=== PATIENT | female | born 1945 | race Caucasian/White ===

== ENCOUNTER → 2017-04-30 | Day surgery (SDC) | payer MEDICARE, OTHER ==
[2017-04-28 10:47] LABS: BASOPHILS % 0.6 % (0.0-1.0); EOSINOPHILS # (AUTO) 0.1 (0.0-0.4); EOSINOPHILS % 1.5 % (0.0-6.0); HEMATOCRIT 33.3 % (34.2-44.1); HEMOGLOBIN 10.6 g/dL (12.0-16.0); LYMPHOCYTES % 19.5 % (18.0-39.1); MEAN CORPUSCULAR HEMOGLOBIN 30.6 pg (28-32); MEAN CORPUSCULAR HGB CONC 31.8 g/dL (31-35); MEAN CORPUSCULAR VOLUME 96.2 fL (81-99); MONOCYTES # (AUTO) 0.5 (0.2-0.8); NEUTROPHILS # (AUTO) 3.6 (2.1-6.9); PLATELET COUNT 268 x10e3/uL (140-360); RED BLOOD COUNT 3.46 x10e6/uL (3.6-5.1); RED CELL DISTRIBUTION WIDTH 13.6 % (11.7-14.4)
[~2017-04-30] MED LIST: ATORVASTATIN CA10 MG PO; ATORVASTATIN CA20 MG PO; CRAMP TABLET1 EACH PO; DIOVAN HCT 1601 EACH; DIOVAN HCT 3201 EACH; DIOVAN160 MG PO; DIOVAN320 MG PO; EPHEDRINE SULFATE INJ 50 MG/10 ML SYR ONE; EPINEPHRINE HCL INJ 1 MG/ML AMP ONE; FENTANYL CITRATE/PF 100MCG/2 ML INJ ONE; GLYCOPYRROLATE INJ 1MG/ 5 ML SYR ONE; HYDRALAZINE HCL25 MG PO; IRON PO; LIDOCAINE HCL 2% LOCAL INJ 5 ML SDV VIAL INJ ONE; MAXZIDE 37.5 M1 EACH PO; MIDAZOLAM HCL 2 MG/2 ML VIAL ONE; NORVASC5 MG; PROPOFOL IV EMULSION 10 MG/ML 20 ML VIAL ONE; SIMETHICONE 40 MG/0.6 ML BTL ONE; TRIAMTERENE-HCTZ1 EA PO; Z.0.CRESTOR5 MG PO; Z.0.DIOVAN320 MG PO; Z.0.EVISTA60 MG PO; Z.0.KLOR-CON 1010 ME PO; Z.0.LASIX20 MG PO; Z.0.NORVASC10 MG PO; Z.0.PAXIL20 MG PO; [UNRECOGNIZED DRUG - OTHER] PO
== END | disposition home or self-care (01) ==
LOC: OR 07:23
PROVIDERS: ATTEND Internal Medicine Gastroenterology
DX: D50.0 Iron deficiency anemia secondary to blood loss (chronic) (principal); K63.5 Polyp of colon; K31.7 Polyp of stomach and duodenum; K29.50 Unspecified chronic gastritis without bleeding; Q27.33 Arteriovenous malformation of digestive system vessel; K59.00 Constipation, unspecified; B96.81 Helicobacter pylori [H. pylori] as the cause of diseases classified elsewhere; K57.30 Diverticulosis of large intestine without perforation or abscess without bleeding; K63.89 Other specified diseases of intestine; K44.9 Diaphragmatic hernia without obstruction or gangrene; K64.8 Other hemorrhoids; K64.4 Residual hemorrhoidal skin tags; I10 Essential (primary) hypertension; E78.5 Hyperlipidemia, unspecified; F32.9 Major depressive disorder, single episode, unspecified; Z01.810 Encounter for preprocedural cardiovascular examination; Z01.812 Encounter for preprocedural laboratory examination; Z87.891 Personal history of nicotine dependence
CPT/HCPCS: 36415; 43251; 43270; 45380; 85025; 88305; 88312; 93005; J0171; J2001; J2250; 43239; 45384; 45385

== ENCOUNTER 2020-02-25 09:44 | Emergency (ER) | payer MEDICARE, OTHER ==
[~2020-02-25] VITALS: Ht 165.1 cm; Wt 70.3 kg
[~2020-02-25 09:44] MED LIST changes: -EPHEDRINE SULFATE INJ 50 MG/10 ML SYR ONE; -EPINEPHRINE HCL INJ 1 MG/ML AMP ONE; -FENTANYL CITRATE/PF 100MCG/2 ML INJ ONE; -GLYCOPYRROLATE INJ 1MG/ 5 ML SYR ONE; -LIDOCAINE HCL 2% LOCAL INJ 5 ML SDV VIAL INJ ONE; -MIDAZOLAM HCL 2 MG/2 ML VIAL ONE; -PROPOFOL IV EMULSION 10 MG/ML 20 ML VIAL ONE; -SIMETHICONE 40 MG/0.6 ML BTL ONE
--- NOTE | 2020-02-25 10:57 | Diagnostic Imaging Report ---
CT BRAIN WO-HOPD, CT C-SPINE W/O - HOPD HISTORY: Trauma COMPARISON: None. TECHNIQUE: Axial noncontrast CT images were obtained through the head and cervical spine. Coronal and sagittal reconstructions obtained from the axial data. One or more of the following dose reduction techniques were used: Automated exposure control, adjustment of the mA and/or kV according to patient size, and/or utilization of iterative reconstruction technique. DISCUSSION: HEAD CT: Scalp/Skull: Unremarkable. Brain sulci: Mildly prominent. Ventricles: Mild compensatory dilatation. Extra-axial spaces: No masses or fluid collections. Carotid siphon calcifications are present. Parenchyma: Mild periventricular white matter hypodensities are likely chronic microvascular ischemic changes. Old focal cortical infarct is seen in the left superior parietal lobule. Otherwise, no masses, hemorrhage, or large vascular territory acute infarct. Dural sinuses: No abnormal densities. Sellar/Suprasellar region: Intact. Skull base: Intact. Incidental findings: None. CERVICAL SPINE CT: Cervical lordosis is preserved. There is no scoliosis or subluxation. No fractures, compression deformity, or destructive osseous lesions are seen. The craniocervical junction is intact. No gross spinal canal masses are seen. The paravertebral and paraspinal soft tissues are unremarkable. Degenerative changes: Multilevel spondylosis is advanced at C5-C6. Associated multilevel facet arthrosis is present, left greater than right. There is at least moderate canal stenosis at C5-C6 due to posterior disc osteophyte complex. Multilevel bilateral foraminal stenoses due to uncovertebral and facet arthrosis are present - moderate to severe on the right at C5-C6 and C6-C7. Incidental findings: There is mild scarring in the lung apices. The thyroid gland is mildly heterogeneous. Moderate right carotid bulb calcified plaque is present. Surgical clips are seen adjacent to the mid left carotid space. IMPRESSION: Head CT: 1. No acute intracranial abnormalities. 2. Mild supratentorial chronic microvascular ischemic change. Mild generalized cerebral volume loss. 3. 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 Cervical Spine CT: 1. No acute osseous abnormalities in the cervical spine. 2. Degenerative changes as described above. Signed by: Dr. Lm Breaux M.D. on 02/25/2020 10:54 AM
--- NOTE | 2020-02-25 11:31 | Emergency Department Note ---
History of Present Illnes History of Present Illness Chief Complaint: General Medicine Complaints History of Present Illness This is a 74 year old female presents with laceration to right forehead s/p fall. Tripped on puppy outside, landing on wood deck. No LOC. No N/V/D. No numbness, tingling, weakness, speech/vision problems. No neck pain. No loss of bowel or bladder function. Teeth fell like they fit together normally. 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: No Onset (how long ago): minute(s) (40) Location: right forehead Quality: sharp Radiation: Reports non-radiation Severity: moderate Onset quality: sudden Timing of current episode: unable to specify Progression: unchanged Chronicity: new Context: Reports trauma/injury; Denies recent illness Relieving factors: none Exacerbating factors: none Associated symptoms: Reports headaches; Denies chest pain, Denies cough, Denies diaphoresis, Denies fever/chills, Denies loss of appetite, Denies nausea/vomiting, Denies rash, Denies syncope Past Medical/Family History Physician Review I have reviewed the patient's past medical and family history. Any updates have been documented here. Past Medical History Recent Fever: No Clinical Suspicion of Infectio: No New/Unexplained Change in Ment: No Past Medical History: Hyperlipedemia Other Medical History: HYPERCHOLESTEROLEMIA Other Surgery: BLADDER SUSPENSION Social History Smoking Cessation: Never Smoker Counseling Performed: No Alcohol Use: None Any Illegal Drug Use: No Other Last Tetanus: 2015 Any Pre-Existing Lines (PICC,: No Review of Systems Review of Systems Constitutional: Denies chills, Denies fever EENTM: Denies nose congestion, Denies throat pain, Denies throat swelling Cardiovascular: Denies palpitations, Denies syncope Respiratory: Denies pain with cough, Denies dyspnea Gastrointestinal: Denies diarrhea Genitourinary: Denies dysuria Musculoskeletal: Denies neck pain Integumentary: Denies rash Neurological: Reports headache Endocrine: Denies increased urination Hematological/Lymphatic: Denies easy bruising Physical Exam Related Data Allergies: Coded Allergies: Pentazocine Lactate (Verified Allergy, Mild, "MAKES ME CRAZY", 04/30/17) Triage Vital Signs Vital Signs Date Time Temp Pulse Resp B/P (MAP) Pulse Ox O2 Delivery O2 Flow Rate FiO2 02/25/20 09:50 97.2 66 16 124/79 99 Room Air Physical Exam CONSTITUTIONAL Constitutional: Present well-developed, Present well-nourished HENT HENT: Present normocephalic, Present oropharynx clear/moist, Present nose normal, Present other (2.5 cm laceration to left forehead just above right lateral eyelid, No racoon eyes, no kyle sign. No dental tenderness. Facial tenderness over laceration only.); Absent atraumatic, Absent nasal congestion, Absent rhinorrhea HENT L/R: Present left TM normal, Present right TM normal, Present left canal normal, Present right canal normal, Present left ext ear normal, Present right ext ear normal EYES Eyes: Reports PERRL, Reports conjunctivae normal, Reports EOM normal, Reports lids normal NECK Neck: Present ROM normal; Absent cervical adenopathy PULMONARY Pulmonary: Present effort normal, Present breath sounds normal CARDIOVASCULAR Cardiovascular: Present regular rhythm, Present heart sounds normal, Present capillary refill normal, Present normal rate GASTROINTESTINAL Abdominal: Present soft, Present nontender, Present bowel sounds normal GENITOURINARY SKIN Skin: Present warm, Present dry, Present other (2.5 cm laceration to left forehead just above right lateral eyelid) MUSCULOSKELETAL Musculoskeletal: Present ROM normal NEUROLOGICAL Neurological: Present alert, Present oriented x 3, Present DTRs normal, Present no gross motor or sensory deficits, Present other (negative [place]); Absent cranial nerve deficit, Absent sensory deficit, Absent abnormal DTRs, Absent abnormal coordination, Absent abnormal gait, Absent weakness PSYCHOLOGICAL Psychological: Present mood/affect normal, Present judgement normal Results Imaging Imaging Comments CT BRAIN WO-HOPD, CT C-SPINE W/O - HOPD HISTORY: Trauma COMPARISON: None. TECHNIQUE: Axial noncontrast CT images were obtained through the head and cervical spine. Coronal and sagittal reconstructions obtained from the axial data. One or more of the following dose reduction techniques were used: Automated exposure control, adjustment of the mA and/or kV according to patient size, and/or utilization of iterative reconstruction technique. DISCUSSION: HEAD CT: Scalp/Skull: Unremarkable. Brain sulci: Mildly prominent. Ventricles: Mild compensatory dilatation. Extra-axial spaces: No masses or fluid collections. Carotid siphon calcifications are present. Parenchyma: Mild periventricular white matter hypodensities are likely chronic microvascular ischemic changes. Old focal cortical infarct is seen in the left superior parietal lobule. Otherwise, no masses, hemorrhage, or large vascular territory acute infarct. Dural sinuses: No abnormal densities. Sellar/Suprasellar region: Intact. Skull base: Intact. Incidental findings: None. CERVICAL SPINE CT: Cervical lordosis is preserved. There is no scoliosis or subluxation. No fractures, compression deformity, or destructive osseous lesions are seen. The craniocervical junction is intact. No gross spinal canal masses are seen. The paravertebral and paraspinal soft tissues are unremarkable. Degenerative changes: Multilevel spondylosis is advanced at C5-C6. Associated multilevel facet arthrosis is present, left greater than right. There is at least moderate canal stenosis at C5-C6 due to posterior disc osteophyte complex. Multilevel bilateral foraminal stenoses due to uncovertebral and facet arthrosis are present - moderate to severe on the right at C5-C6 and C6-C7. Incidental findings: There is mild scarring in the lung apices. The thyroid gland is mildly heterogeneous. Moderate right carotid bulb calcified plaque is present. Surgical clips are seen adjacent to the mid left carotid space. IMPRESSION: Head CT: 1. No acute intracranial abnormalities. 2. Mild supratentorial chronic microvascular ischemic change. Mild generalized cerebral volume loss. 3. 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 Cervical Spine CT: 1. No acute osseous abnormalities in the cervical spine. 2. Degenerative changes as described above. Signed by: Dr. Lm Breaux M.D. on 02/25/2020 10:54 AM Procedures Laceration Laceration: Laceration 1 Site: face Side: right (forehead just above eyebrow) Size (cm): 2.5 Description: linear Depth: simple, single layer Amount of anesthesia (mL): 0 Pre-repair: wound exposed, irrigated extensively, deep structures intact Skin layer closed with: other (dermabond) Additional comments tolerated well, no complications Assessment & Plan Medical Decision Making MDM Patient s/p fall after tripping on dog. Mechanical fall - no syncope or pre-fall symptoms requiring workup. Differential dx includes, but not limited to: SDH, SAH, Cerebral contusion, skull fracture, laceration, contusion. CT head and C- spine shows nothing acute. Laceration closed with dermabond. Assessment & Plan Final Impression: (1) Laceration of skin of face (2) Closed head injury Depart Disposition: HOME, SELF-CARE Last Vital Signs Date Time Temp Pulse Resp B/P (MAP) Pulse Ox O2 Delivery O2 Flow Rate FiO2 02/25/20 09:50 97.2 66 16 124/79 99 Room Air Home Meds Reported Medications Triamterene/Hydrochlorothiazid (MAXZIDE 37.5 MG-25 MG TABLET) 1 Each Tablet, PO DAILY 10/29/16 Hydralazine Hcl (HYDRALAZINE HCL) 25 Mg Tab, 50 MG PO BID, TAB 10/04/16 Atorvastatin Calcium (ATORVASTATIN CALCIUM) 20 Mg Tablet, 20 MG PO HS, #30 TAB 10/04/16 Valsartan (DIOVAN) 160 Mg Tab, 160 MG PO BID, #60 TAB 10/04/16 Amlodipine Besylate (Norvasc) 10 Mg Tablet, 10 MG PO DAILY 07/12/11 Raloxifene Hcl (Evista) 60 Mg Tablet, 60 MG PO DAILY 07/12/11 JORDY LUCIO MD Feb 25, 2020 11:14
--- OUTSIDE RECORDS SUMMARY | 2020-02-26 10:04 | XMS REPORT | Continuity of Care Document ---
Author Author [facility] t Organization [facility] Address [address] [place] [address] Phone Unavailable Care Team Providers Care Recruiting Assistant Name Role Phone MD SCOTT SHIVANI PCP Vic LUCIO Attphys Unavailable CULLEN MENDOZA Attphys Unavailable FISH, MALENA SPENCE Attphys Unavailable FISH, MALENA SPENCE Admphys Unavailable Payers Payer Name Policy Type Policy Number Effective Date Expiration Date [facility] [id number] 2019 00:00:00 2019 00:00:00 [facility] Medicare A & B [id number] 2009 00:00:00 [facility] Problems Condition Name Condition Details Condition Category Status Onset Date Resolution Date Last Treatment Date Treating Clinician Comments Source Chest pain Chest pain Disease Active 2017-03-07 00:00:00 [facility] Food poisoning Problem Active [facility] Vomiting Problem Active [facility] Syncope and collapse Problem Active [facility] Urinary tract infection Problem Active [facility] Fracture of nasal bone Problem Active [facility] Abrasion of scalp Problem Active [facility] Allergies, Adverse Reactions, Alerts Allergy Name Allergy Type Status Severity Reaction(s) Onset Date Inacti ve Date Treating Clinician Comments Source Pentazocine Lactate Allergy to substance Active Mild "MAKES ME CRAZY" 2017-04-30 00:00:00 [facility] Pentazocine Lactate Propensity to adverse reactions Active 2017-03-06 00:00:00 [facility] Pentazocine Lactate Propensity to adverse reactions to drug Active Anxiety 2017-02-06 00:00:00 José Miguel flanagan Family History Family Member Diagnosis Comments Start Date Stop Date Source Natural mother Breast cancer José Miguel Ryan Social History Social Habit Start Date Stop Date Quantity Comments Source Sex Assigned At [facility] Alcohol intake 2017-03-10 00:00:00 2017-03-10 00:00:00 Current drinker of alcohol (finding) [facility] Alcohol Comment 2017-03-07 00:00:00 2017-03-07 00:00:00 very seldom [facility] Tobacco Comment 2017-02-06 00:00:00 2017-02-06 00:00:00 Quit smoking in 1969 José Miguel Ryan Smoking Status Start Date Stop Date Source Former smoker 2017-03-10 00:00:00 2017-03-10 00:00:00 [facility] Medications Ordered Medication Name Filled Medication Name Start Date Stop Da te Current Medication? Ordering Clinician Indication Dosage Frequency Signature (SIG) Comments Components Source amLODIPine (NORVASC) 10 MG tablet 2017-03-07 17:12:56 Yes 10mg QD Take 10 mg by mouth daily. [facility] atorvastatin (LIPITOR) 20 MG tablet 2017-03-07 17:12:56 Yes 20mg QD Take 20 mg by mouth daily. [facility] hydrALAZINE (APRESOLINE) 10 MG tablet 2017-03-07 17:12:56 Y es 10mg QD Take 10 mg by mouth daily. [facility] PARoxetine (PAXIL) 40 MG tablet 2017-03-07 17:12:56 Yes 40mg Take 40 mg by mouth as needed. [facility] raloxifene (EVISTA) 60 mg tablet 2017-03-07 17:12:56 Yes 60mg QD Take 60 mg by mouth daily. [facility] valsartan (DIOVAN) 160 MG tablet 2017-03-07 17:12:56 Yes 160mg QD Take 160 mg by mouth daily. [facility] Amlodipine Besylate (Norvasc) 10 Mg TABLET Amlodipine Besylate (Norvasc) 10 Mg TABLET Yes 10 Daily [facility] Atorvastatin Calcium Atorvastatin Calcium Yes 20 Bedtime [facility] Hydralazine Hcl Hydralazine Hcl Yes 50 Twice A Day [facility] Raloxifene Hcl (Evista) 60 Mg TABLET Raloxifene Hcl (Evista) 60 Mg TABLET Yes 60 Daily [facility] Triamterene/Hydrochlorothiazid (Maxzide 37.5 Mg-25 Mg Tablet) 1 Each TABLET Triamterene/Hydrochlorothiazid (Maxzide 37.5 Mg-25 Mg Tablet) 1 Each TABLET Yes Daily [facility] Valsartan (Diovan) 160 Mg TAB Valsartan (Diovan) 160 Mg TAB Yes [address] [facility] Acetaminophen/Pamabrom (Cramp Tablet) 1 Each TABLET Ac etaminophen/Pamabrom (Cramp Tablet) 1 Each TABLET 2017-04-30 00:00:00 No As Needed [facility] Citracal Vitamin Citracal Vitamin 2017-04-30 00:00:00 No Daily [facility] Iron Iron 2017-04-30 00:00:00 No Daily [facility] Triamterene/Hctz (Triamterene-Hctz 37.5-25 Mg Tb) 1 Ea TAB Triamterene/Hctz (Triamterene-Hctz 37.5-25 Mg Tb) 1 Ea TAB 2016-10-11 00:00:[address] [facility] Atorvastatin Calcium Atorvastatin Calcium 2016-10-04 00:00:[address] [facility] Paroxetine Hcl (Paxil) 20 Mg TABLET Paroxetine Hcl (Paxil) 20 Mg TABLET 2016-10-04 00:00:00 No 40 1-4 A Day As Needs [facility] Valsartan (Diovan) 320 Mg TABLET Valsartan (Diovan) 320 Mg TABLE T 2016-10-04 00:00:00 No 320 Bedtime [facility] Furosemide (Lasix) 20 Mg TABLET Furosemide (Lasix) 20 Mg TABLET 2015-06-13 00:00:00 No 20 Daily [facility] Potassium Chloride (Klor-Con 10) 10 Meq TABLET. Pota ssium Chloride (Klor-Con 10) 10 Meq TABLET.SA 2015-06-13 00:00:00 No 10 [place] [address] [facility] Valsartan (Diovan) 160 Mg TAB Valsartan (Diovan) 160 Mg TAB 2015-06-13 00:00:00 No 160 Bedtime [facility] Valsartan (Diovan) 320 Mg TABLET Valsartan (Diovan) 320 Mg TABLE T 2013-10-25 00:00:00 No 320 Daily [facility] Amlodipine Besylate (Norvasc) 5 Mg TAB Amlodipine Besylate (Norv asc) 5 Mg TAB 2013-10-21 00:00:00 No [facility] Rosuvastatin Calcium (Crestor) 5 Mg TABLET Rosuvastati n Calcium (Crestor) 5 Mg TABLET 2013-10-21 00:00:00 No 5 Daily [facility] Valsartan/Hydrochlorothiazide (Diovan Hct 320-25 Mg Ta blet) 1 Each TABLET Valsartan/Hydrochlorothiazide (Diovan Hct 320-25 Mg Tablet) 1 Each TABLET 2013-10-21 00:00:00 [facility] Valsartan/Hydrochlorothiazide (Diovan Hct 160-12.5 Mg Tab) 1 Each TABLET Valsartan/Hydrochlorothiazide (Diovan Hct 160-12.5 Mg Tab) 1 Each TABLET 2013-10-21 00:00:00 [facility] Vital Signs Vital Name Observation Time Observation Value Comments Source Oxygen saturation by Pulse oximetry 2020-02-25 09:50:00 99 /min [facility] Weight 2020-02-25 09:50:00 155 [lb_av] [facility] BMI (Body Mass Index) 2020-02-25 09:50:00 25.8 kg/m2 [facility] Procedures This patient has no known procedures. Plan of Care Planned Activity Planned Date Details Comments Source Future Scheduled Test 2019-12-07 00:00:00 INFLUENZA VACCINE (#1) [code = INFLUENZA VACCINE (#1)] [facility] r Future Scheduled Test 2019-11-06 00:00:00 INFLUENZA VACCINE [code = INFLUENZA VACCINE] [facility] Scheduled Test 2010-09-06 00:00:00 MEDICARE ANNUAL WE LLNESS (YEAR 2 or FIRST YEAR if no IPPE) [code = MEDICARE ANNUAL WELLNESS (YEAR 2 or FIRST YEAR if no IPPE)] [facility] Future Scheduled Test 2009 00:00:00 65+ PNEUMOCOCCAL V ACCINE (1 of 1 - PPSV23) [code = 65+ PNEUMOCOCCAL VACCINE (1 of 1 - PPSV23)] [facility] Scheduled Test 2009 00:00:00 PNEUMOCOCCAL 65+ Y RS (1 of 1 - [id number]) [code = PNEUMOCOCCAL 65+ YRS (1 of 1 - [id number] PCV13)] [facility] Future Scheduled Test 1994 00:00:00 BREAST CANCER SCRE ENING [code = BREAST CANCER SCREENING] [facility] Scheduled Test 1994 00:00:00 COLONOSCOPY SCREEN ING [code = COLONOSCOPY SCREENING] [facility] Scheduled Test 1994 00:00:00 SHINGLES VACCINES (#1) [code = SHINGLES VACCINES (#1)] [facility] Scheduled Test 1944 00:00:00 Screening for edinson gnant neoplasm of colon (procedure) [code = 126088296] [facility] Instructions Concussion/Head Injury - Adult [facility] Instructions Laceration [facility] Encounters Start Date/Time End Date/Time Encounter Type Admission Type Attendi [facility] Care Department Encounter ID Source 2020-02-25 10:00:00 2020-02-25 11:14:00 Departed Emergency Room JORDY LUCIO [facility] [id number] [facility] Results Test Description Test Time Test Comments Results Result Comments Source CT C-SPINE W/O - HOPD 2020-02-25 10:45:00 [facility] 1945 Sex: F [place] [address] Patient Name: CHULA OLIVA MR #: [id number] : 1945 Age/Sex: 74/F Req #: [id number] [facility] Physician: Ordered by: JORDY LUCIO MD Report #: [id number] Location: [facility] Room/Bed: Procedure: [id number] HOPD/CT C-SPINE W/O - HOPD Exam Date: 02/25/20 Exam Time: 1032 REPORT STATUS: Signed CT BRAIN WO-HOPD, CT C-SPINE W/O - HOPD HISTORY: Trauma COMPARISON: None. TECHNIQUE: Axial noncontrast CT images were obtained through the head and cervical spine. Coronal and sagittal reconstructions obtained from the axial data. One or more of the following dose reduction techniques were used: Automated exposure control, adjustment of the mA and/or kV according to patient size, and/or utilization of iterative reconstruction technique. DISCUSSION: HEAD CT: Scalp/Skull: Unremarkable. Brain sulci: Mildly prominent. Ventricles: Mild compensatory dilatation. Extra-axial spaces: No masses or fluid collections. Carotid siphon calcifications are present. Parenchyma: Mild periventricular white matter hypodensities are likely chronic microvascular ischemic changes. Old focal cortical infarct is seen in the left superior parietal lobule. Otherwise, no masses, hemorrhage, or large vascular territory acute infarct. Dural sinuses: No abnormal densities. Sellar/Suprasellar region: Intact. Skull base: Intact. Incidental findings: None. CERVICAL SPINE CT: Cervical lordosis is preserved. There is no scoliosis or subluxation. No fractures, compression deformity, or destructive osseous lesions are seen. The craniocervical junction is intact. No gross spinal canal masses are seen. The paravertebral and paraspinal soft tissues are unremarkable. Degenerative changes: Multilevel spondylosis is advanced at C5-C6. Associated multilevel facet arthrosis is present, left greater than right. There is at least moderate canal stenosis at C5-C6 due to posterior disc osteophyte complex. Multilevel bilateral foraminal stenoses due to uncovertebral and facet arthrosis are present - moderate to severe on the right at C5-C6 and C6-C7. Incidental findings: There is mild scarring in the lung apices. The thyroid gland is mildly heterogeneous. Moderate right carotid bulb calcified plaque is present. Surgical clips are seen adjacent to the mid left carotid space. IMPRESSION: Head CT: 1. No acute intracranial abnormalities. 2. Mild supratentorial chronic microvascular ischemic change. Mild generalized cerebral volume loss. 3. 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 Cervical Spine CT: 1. No acute osseous abnormalities in the cervical spine. 2. Degenerative changes as described above. Signed by: Dr. Lm Breaux M.D. on 02/25/2020 10:54 AM Dictated By: LM BREAUX MD 105 Transcribed By: HEATH on 02/25/20 1053 COPY TO: JORDY LUCIO MD CT BRAIN [facility] 2020-02-25 10:45:00 [facility] : 1945 Sex: F [facility] [address] [address] Patient Name: CHULA OLIVA MR #: [id number] : 1945 Age/Sex: 74/F Req #: [id number] Adm Physician: Ordered by: JORDY LUCIO MD Report #: [id number] Location: [facility] Room/Bed: Procedure: [id number] HOPD/CT BRAIN WO-HOPD Exam Date: 02/25/20 Exam Time: 1020 REPORT STATUS: Signed CT BRAIN WO-HOPD, CT C-SPINE W/O - HOPD HISTORY: Trauma COMPARISON: None. TECHNIQUE: Axial noncontrast CT images were obtained through the head and cervical spine. Coronal and sagittal reconstructions obtained from the axial data. One or more of the following dose reduction techniques were used: Automated exposure control, adjustment of the mA and/or kV according to patient size, and/or utilization of iterative reconstruction technique. DISCUSSION: HEAD CT: Scalp/Skull: Unremarkable. Brain sulci: Mildly prominent. Ventricles: Mild compensatory dilatation. Extra-axial spaces: No masses or fluid co llections. Carotid siphon calcifications are present. Parenchyma: Mild periventricular white matter hypodensities are likely chronic microvascular ischemic changes. Old focal cortical infarct is seen in the left superior parietal lobule. Otherwise, no masses, hemorrhage, or large vascular territory acute infarct. Dural sinuses: No abnormal densities. Sellar/Suprasellar region: Intact. Skull base: Intact. Incidental findings: None. CERVICAL SPINE CT: Cervical lordosis is preserved. There is no scoliosis or subluxation. No fractures, compression deformity, or destructive osseous lesions are seen. The craniocervical junction is intact. No gross spinal canal masses are seen. The paravertebral and paraspinal soft tissues are unremarkable. Degenerative changes: Multilevel spondylosis is advanced at C5-C6. Associated multilevel facet arthrosis is present, left greater than right. There is at least moderate canal stenosis at C5-C6 due to posterior disc osteophyte complex. Multilevel bilateral foraminal stenoses due to uncovertebral and facet arthrosis are present - moderate to severe on the right at C5-C6 and C6-C7. Incidental findings: There is mild scarring in the lung apices. The thyroid gland is mildly heterogeneous. Moderate right carotid bulb calcified plaque is present. Surgical clips are seen adjacent to the mid left carotid space. IMPRESSION: Head CT: 1. No acute intracranial abnormalities. 2. Mild supratentorial chronic microvascular ischemic change. Mild generalized cerebral volume loss. 3. 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 Cervical Spine CT: 1. No acute osseous abnormalities in the cervical spine. 2. Degenerative changes as described above. Signed by: Dr. Lm Breaux M.D. on 02/25/2020 10:54 AM Dictated By: LM BREAUX MD 1054 Transcribed By: HEATH on 02/25/20 1054 COPY TO: JORDY LUCIO MD RAD, CHEST, 2 VIEWS 2018-07-15 11:02:00 Reason for Exam:->I1 0, E78.5, N18.3, I67.89, Z79.899 FINAL REPORT Ches t, 2 views. Clinical History: I10, E78.5, N18.3, I67.89, Z79.899 Comparison Study: January 14, 2017 Findings: The heart and lungs are within normal limits. The pleural spaces are clear. Degenerative changes are seen. Impression: No active cardiopulmonary disease. Signed: Ramy Bartholomew MDReport Verified Date/Time: 07/15/2018 11:02:35 Reading Location: [facility] B1 [id number] Ortho Consult Reading Room C METABOLIC PANEL 2017-03-26 13:58:00 Test Item SODIUM (BEAKER) (test code = 381) 139 meq/L 136-145 POTASSIUM (BEAKER) (test code = 379) 4.7 meq/L 3.5-5.1 CHLORIDE (BEAKER) (test code = 382) 107 meq/L 98-107 CO2 (BEAKER) (test code = 355) 25 meq/L 22-29 BLOOD UREA NITROGEN (BEAKER) (test code = 354) 24 mg/dL 7-21 H CREATININE (BEAKER) (test code = 358) 1.23 mg/dL 0.57-1.25 GLUCOSE RANDOM (BEAKER) (test code = 652) 92 mg/dL 70-105 CALCIUM (BEAKER) (test code = 697) 9.2 mg/dL 8.4-10.2 EGFR (BEAKER) (test code = 1092) 43 mL/min/1.73 sq m ESTIMATED GFR IS NOT ACCURATE CREATININE CLEARANCE IN PREDICTING GLOMERULAR FILTRATION RATE. ESTIMATED GFR IS NOT APPLICABLE FOR DIALYSIS PATIENTS. CBC W/PLT COUNT & AUTO [id number] 13:49:00* Test Item Value Reference Range Interpretation Comments WHITE BLOOD CELL COUNT (BEAKER) (test code = 775) 5.9 K/ L 3.5- 10.5 RED BLOOD CELL COUNT (BEAKER) (test code = 761) 3.53 M/ L 3.93-5 .22 L HEMOGLOBIN (BEAKER) (test code = 410) 10.4 GM/DL 11.2-15.7 L HEMATOCRIT (BEAKER) (test code = 411) 32.6 % 34.1-44.9 L MEAN CORPUSCULAR VOLUME (BEAKER) (test code = 753) 92.4 fL 79. 4-94.8 MEAN CORPUSCULAR HEMOGLOBIN (BEAKER) (test code = 751) 29.5 pg 25.6-32.2 MEAN CORPUSCULAR HEMOGLOBIN CONC (BEAKER) (test code = 752) 31.9 GM/DL 32.2-35.5 L RED CELL DISTRIBUTION WIDTH (BEAKER) (test code = 412) 14.2 % 11.7-14.4 PLATELET COUNT (BEAKER) (test code = 756) 271 K/CU MM 150-450 MEAN PLATELET VOLUME (BEAKER) (test code = 754) 10.3 fL 9.4-12 .3 NUCLEATED RED BLOOD CELLS (BEAKER) (test code = 413) 0 /100 WBC 0 -0 NEUTROPHILS RELATIVE PERCENT (BEAKER) (test code = 429) 62 % LYMPHOCYTES RELATIVE PERCENT (BEAKER) (test code = 430) 25 % MONOCYTES RELATIVE PERCENT (BEAKER) (test code = 431) 9 % EOSINOPHILS RELATIVE PERCENT (BEAKER) (test code = 432) 3 % BASOPHILS RELATIVE PERCENT (BEAKER) (test code = 437) 1 % NEUTROPHILS ABSOLUTE COUNT (BEAKER) (test code = 670) 3.63 K/ L 1.56-6.13 LYMPHOCYTES ABSOLUTE COUNT (BEAKER) (test code = 414) 1.46 K/ L 1.18-3.74 MONOCYTES ABSOLUTE COUNT (BEAKER) (test code = 415) 0.53 K/ L 0. 24-0.36 H EOSINOPHILS ABSOLUTE COUNT (BEAKER) (test code = 416) 0.16 K/ L 0.04-0.36 BASOPHILS ABSOLUTE COUNT (BEAKER) (test code = 417) 0.05 K/ L 0. 01-0.08 IMMATURE GRANULOCYTES-RELATIVE PERCENT (BEAKER) (test code = 2801) 0 % 0-1 CBC W/PLT COUNT & AUTO [id number] 09:42:00* Test Item Value Reference Range Interpretation Comments WHITE BLOOD CELL COUNT (BEAKER) (test code = 775) 5.3 K/ L 3.5- 10.5 RED BLOOD CELL COUNT (BEAKER) (test code = 761) 3.33 M/ L 3.93-5 .22 L HEMOGLOBIN (BEAKER) (test code = 410) 9.7 GM/DL 11.2-15.7 L HEMATOCRIT (BEAKER) (test code = 411) 30.5 % 34.1-44.9 L MEAN CORPUSCULAR VOLUME (BEAKER) (test code = 753) 91.6 fL 79. 4-94.8 MEAN CORPUSCULAR HEMOGLOBIN (BEAKER) (test code = 751) 29.1 pg 25.6-32.2 MEAN CORPUSCULAR HEMOGLOBIN CONC (BEAKER) (test code = 752) 31.8 GM/DL 32.2-35.5 L RED CELL DISTRIBUTION WIDTH (BEAKER) (test code = 412) 13.6 % 11.7-14.4 PLATELET COUNT (BEAKER) (test code = 756) 264 K/CU MM 150-450 MEAN PLATELET VOLUME (BEAKER) (test code = 754) 10.4 fL 9.4-12 .3 NUCLEATED RED BLOOD CELLS (BEAKER) (test code = 413) 0 /100 WBC 0 -0 NEUTROPHILS RELATIVE PERCENT (BEAKER) (test code = 429) 61 % LYMPHOCYTES RELATIVE PERCENT (BEAKER) (test code = 430) 24 % MONOCYTES RELATIVE PERCENT (BEAKER) (test code = 431) 11 % EOSINOPHILS RELATIVE PERCENT (BEAKER) (test code = 432) 3 % BASOPHILS RELATIVE PERCENT (BEAKER) (test code = 437) 1 % NEUTROPHILS ABSOLUTE COUNT (BEAKER) (test code = 670) 3.22 K/ L 1.56-6.13 LYMPHOCYTES ABSOLUTE COUNT (BEAKER) (test code = 414) 1.26 K/ L 1.18-3.74 MONOCYTES ABSOLUTE COUNT (BEAKER) (test code = 415) 0.59 K/ L 0. 24-0.36 H EOSINOPHILS ABSOLUTE COUNT (BEAKER) (test code = 416) 0.16 K/ L 0.04-0.36 BASOPHILS ABSOLUTE COUNT (BEAKER) (test code = 417) 0.03 K/ L 0. 01-0.08 IMMATURE GRANULOCYTES-RELATIVE PERCENT (BEAKER) (test code = 2801) 0 % 0-1 BASIC METABOLIC [id number] 09:36:00* Test Item Value Reference Range Interpretation Comments SODIUM (BEAKER) (test code = 381) 142 meq/L 136-145 POTASSIUM (BEAKER) (test code = 379) 4.4 meq/L 3.5-5.1 CHLORIDE (BEAKER) (test code = 382) 110 meq/L 98-107 H CO2 (BEAKER) (test code = 355) 25 meq/L 22-29 BLOOD UREA NITROGEN (BEAKER) (test code = 354) 34 mg/dL 7-21 H CREATININE (BEAKER) (test code = 358) 1.34 mg/dL 0.57-1.25 H GLUCOSE RANDOM (KING) (test code = 652) 91 mg/dL 70-105 CALCIUM (KING) (test code = 697) 8.8 mg/dL 8.4-10.2 EGFR (KING) (test code = 1092) 39 mL/min/1.73 sq m ESTIMATED GFR IS NOT ACCURATE CREATININE CLEARANCE IN PREDICTING GLOMERULAR FILTRATION RATE. ESTIMATED GFR IS NOT APPLICABLE FOR DIALYSIS PATIENTS. RAD, CHEST, 2 [id number] 10:56:00Reason for Exam:->I10, E78.4, N18.3, I67.89, I70.1, R94.31FINAL REPORT Chest, two views HISTORY: Hypertension COMPARISON: 12/27/2015 DISCUSSION: Lungs are clear without focal consolidation. Cardiomediastinal silhouette is unremarkable. No acute osseous abnormality. No pleural effusion or pneumothorax. Visualized portions of the upper abdomen are unremarkable. IMPRESSION: No acute cardiopulmonary abnormality. Signed: Bryant Richardseport Verified Date/Time: 01/14/2017 10:56:37 Reading Location: [address] Radiology Reading Room
--- OUTSIDE RECORDS SUMMARY | 2020-02-26 10:04 | XMS REPORT | Clinical Summary ---
Author Author KRISTINA [employer] [facility] [employer] [facility] Address Unknown Phone Unavailable Care Team Providers Care Physical Chemistry Professor Name Role Phone Zana Yang PCP Zana Yagn Unavailable Allergies Comments Active Allergy Reactions Severity Noted Date Pentazocine Lactate 03/06/2017 Medications End Date Status Medication Sig Dispensed Refills Start Date Active amLODIPine (NORVASC) 10 Take 10 mg by 0 MG tablet mouth daily. Active atorvastatin (LIPITOR) 20 Take 20 mg by 0 MG tablet mouth daily. Active hydrALAZINE (APRESOLINE) Take 10 mg by 0 10 MG tablet mouth daily. Active PARoxetine (PAXIL) 40 MG Take 40 mg by 0 tablet mouth as needed. Active raloxifene (EVISTA) 60 mg Take 60 mg by 0 tablet mouth daily. Active valsartan (DIOVAN) 160 MG Take 160 mg 0 tablet by mouth daily. Active Problems Problem Noted Date Chest pain 03/07/2017 Social History Date Tobacco Use Types Packs/Day Years Used Former Smoker Drinks/Week oz/Week Comments Alcohol Use very seldom Yes Sex Assigned at Date Recorded Not on file Last Filed Vital Signs Not on file Plan of Treatment Health Maintenance Due Date Last Done Comments COLON CANCER SCREENING 1945 COLONOSCOPY PNEUMOCOCCAL 65+ YRS (1 2009 of 1 - [id number] PCV13) MEDICARE ANNUAL WELLNESS 09/06/2010 (YEAR 2 or FIRST YEAR if no IPPE) INFLUENZA VACCINE (#1) 2019 Results Not on fileafter 02/24/2019 Insurance Type Payer Benefit Subscriber ID Effective Phone Address Plan / Dates Group Medicare MEDICARE MEDICARE A [id number] [id number] B resent [facility] [id number] CARE [employer] resent INDEMNITY -[id number] Advance Directives For more information, please contact: [phone] Date Inactivated Comments Code Status Date Activated 03/07/2017 7:12 PM Full Code 03/07/2017 4:45 PM This code status was determined by: Patient 03/07/2017 4:45 PM Full Code 03/07/2017 8:35 AM This code status was determined by: Patient
--- OUTSIDE RECORDS SUMMARY | 2020-02-26 10:04 | XMS REPORT | Clinical Summary ---
Author Author [facility] Address Unknown Phone Unavailable Care Team Providers Care Environmental Specialist Name Role Phone Zana Yang MD PCP Allergies Comments Active Allergy Reactions Severity Noted Date Pentazocine Lactate Anxiety Low 02/06/2017 Medications No known medications Active Problems Not on file Surgical History Surgery Date Site/Laterality Comments HYSTERECTOMY CAROTID ENDARTERECTOMY Medical History Medical History Date Comments Hypertension Coronary artery disease Hyperlipidemia Cancer (HCC) Family History Medical History Relation Name Comments Breast cancer Mother Relation Name Status Comments Mother Social History Date Tobacco Use Types Packs/Day Years Used Former Smoker Comments: Quit smoking in 1969 Drinks/Week oz/Week Comments Alcohol Use No Sex Assigned at Date Recorded Not on file Last Filed Vital Signs Not on file Plan of Treatment Health Maintenance Due Date Last Done Comments BREAST CANCER SCREENING 1994 COLONOSCOPY SCREENING 1994 SHINGLES VACCINES (#1) 1994 65+ PNEUMOCOCCAL VACCINE 2009 (1 of 1 - PPSV23) INFLUENZA VACCINE 11/06/2019 Results Not on fileafter 02/24/2019 Insurance Type Payer Benefit Subscriber ID Effective Phone Address Plan / Dates Group Medicare MEDICARE MEDICARE [id number] [place], PART A AND resent [place] B HMO/PPO [facility] [id number] 2016-P THCARE resent CHOICE/CHO ICE + Advance Directives For more information, please contact: [phone] Patient [employer] Explanation Type Date Recorded Advance Directives, Living Will and Medical Power of Appeals Representative
== END 2020-02-25 11:14 | disposition home or self-care (01) ==
LOC: FSED 10:00
DX: S01.81XA Laceration without foreign body of other part of head, initial encounter (principal); W01.0XXA Fall on same level from slipping, tripping and stumbling without subsequent striking against object, initial encounter; Y93.K1 Activity, walking an animal; Y92.008 Other place in unspecified non-institutional (private) residence as the place of occurrence of the external cause; E78.5 Hyperlipidemia, unspecified
CPT/HCPCS: 70450; 72125; 99284